=== PATIENT | female | born 1965 | race Caucasian/White ===

== ENCOUNTER 2017-02-27 20:50 | Emergency (ER) | payer MEDICARE ==
--- NOTE | ~2017-02-27 | CR63 ---
[facility]. [facility] A Service [facility] RADIOLOGY TEXT RESULTS PATIENT: RACHNA ELISE LOCATION: SED : 65 UNIT #: [id number] AGE: [address]: Wing George MD SEX: F ORDER DR: [id number] [place] [id number] E MR#: [id number] Acc #: [id number] NAME: RACHNA ELISE : 1965 SEX: F STUDY DATE/TIME: 02/27/2017 21:07 UNIT: SED ROOM: STUDY DESCRIPTION: CR Chest 2 View Attending Physician: Wing George M.D. Ordering Physician: Wing George M.D. Primary Care Physician: Lula Guillen D.O. MEDICAL IMAGING REPORT This report is preliminary unless electronic signature is present. EXAM Two-view chest, 02/27/2017 INDICATION 51-year-old female with cough since Sunday. Vomiting. Hurts to breathe, congestion. TECHNIQUE Two-view chest performed and compared with 10/09/2015 FINDINGS Cardiac silhouette is within normal limits. 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 No effusion or dense consolidation. No pneumothorax. IMPRESSION Calcified granulomatous changes otherwise negative chest. Resolution of opacities in the left lung base since the prior study. Dictated by... Darshan Jeffery M.D. THIS IS AN ELECTRONICALLY VERIFIED REPORT Darshan Jeffery M.D. at 02/28/2017 5:13 PM JULIA/linnette TD: 02/28/2017 01:47 JOB #: [id number] [facility] A Service [facility] RADIOLOGY TEXT RESULTS PATIENT: RACHNA ELISE LOCATION: SED : 65 UNIT #: [id number] AGE: [address]: Wing George MD SEX: F ORDER DR: MEDICAL IMAGING REPORT Page 1 of 1
[~2017-02-27 20:50] MED LIST: ALBUTEROL17 GM INH; ALPRAZOLAM; AUGMENTIN875 MG PO; BENZONATATE PO; BUSPAR PO; CELEXA20 MG; DIFLUCAN PO; DILANTIN PO; FLAGYL PO; FLEXERIL PO; IBUPROFEN PO; IBUPROFEN800 MG PO; LEVAQUIN750 MG PO; LEXAPRO; LOMOTIL TABLET1 TAB PO; LORTAB 5-325 M1 EACH PO; LORTAB 5/500 TA1 TA2 PO; LORTAB PO; MACROBID100 M1 PO; MUSCLE RELAXER; NAPROXEN PO; NEURONTIN; NEXIUM; NORFLEX PO; OMNICEF300 M1 PO; OXYIR5 MG; PREDNISONE; PREDNISONE PO; PROMETHAZINE D118 ML PO; PROTONIX PO; SKELAXIN PO; SOMA; SOMA PO; VICODIN 5/500 T1 TAB PO; VOLTAREN50 MG PO; ZOLOFT PO
[2017-02-27 21:11] LABS: INFLUENZA A NEG (NEG); INFLUENZA B NEG (NEG)
== END 2017-02-27 22:40 | disposition home or self-care (01) ==
LOC: SED 20:50
PROVIDERS: Emergency Medicine
DX: J20.9 Acute bronchitis, unspecified (principal); F17.200 Nicotine dependence, unspecified, uncomplicated; R56.9 Unspecified convulsions; Z88.2 Allergy status to sulfonamides; Z88.1 Allergy status to other antibiotic agents
CPT/HCPCS: 71020; 87804; 99283